=== PATIENT | male | born 1955 | race Caucasian/White ===

== ENCOUNTER 2018-06-18 11:32 | Emergency (ER) | payer OTHER, SELFPAY ==
[2018-06-18 11:33] VITALS: BP 140/89; PULSE 66; RESP 16; TEMP 36.3; O2SAT 95; BMI 34.6
--- NOTE | 2018-06-18 11:42 | CT_ITS ---
STUDY: CT BRAIN WITHOUT CONTRAST REASON FOR EXAM: Male, 63 years old. Confusion, blurred vision and slurred speech. RADIATION DOSAGE (If Supplied By Facility): CTDIvol = ( 44.99 ) mGy, DLP = ( 812.98 ) mGycm TECHNIQUE: Transaxial CT imaging of the brain was performed without administration of intravenous contrast material. Individualized dose optimization techniques were used for this CT. COMPARISON: None. FINDINGS: Normal soft tissue structures. Normal calvarium. Normal size ventricles and extra-axial spaces for the patient's age. Normal white matter tracts of the cerebral hemispheres. There is a low-density area in the inferior left basal ganglia which could represent prominent vascular space or old lacunar infarct. Normal brainstem. Normal cerebellum. There is no intracranial hemorrhage. There are no findings of an acute ischemic infarction. There are calcifications of the visualized vertebral and cavernous internal carotid arteries. Normal visualized paranasal sinuses. CT/Brain/Head without Contrast IMPRESSION: No acute intracranial process. If symptoms persist, MRI of the brain is recommended. Electronically Signed: Neeraj Delgado MD at 12:48 EDT Tel , Service support ,
--- NOTE | 2018-06-18 11:42 | RAD_ITS ---
STUDY: X-RAY CHEST REASON FOR EXAM: Male, 63 years old. Shortness of breath and dyspnea. TECHNIQUE: Single AP portable view of the chest. COMPARISON: Prior comparison studies are not available for review at this time. FINDINGS: The lungs are clear and expanded. There is no demonstrated pleural abnormality. Normal size heart. Normal mediastinum and jac. Normal visualized pulmonary arteries. There is atherosclerotic tortuosity of the aortic arch and descending thoracic aorta. The thoracic spine is obscured. Normal visualized ribs, clavicles, and shoulders. There is no demonstrated abnormality of the visualized soft tissue structures of the upper abdomen. RAD/Chest 1 View (Portable) IMPRESSION: No active pulmonary disease. Electronically Signed: Neeraj Delgado MD at 13:07 EDT Tel , Service support ,
--- NOTE | 2018-06-18 11:47 | EKG12_ITS ---
Test Reason : NEURO Blood Pressure : / mmHG Vent. Rate : 061 BPM Atrial Rate : 061 BPM P-R Int : 202 ms QRS Dur : 074 ms QT Int : 408 ms P-R-T Axes : -04 014 004 degrees QTc Int : 410 ms Normal sinus rhythm Normal ECG Confirmed by MELISSA KIRKLAND, BONILLA ([id number]), order editor FELIX FITCH ([id number] on 06/20/2018 1:32:21 PM Referred By: Leif Burleson Confirmed By:BONILLA TORRES MD
--- NOTE | 2018-06-18 11:53 | ED.DCSUM_ITS ---
- ER Visit Summary Date of Service: 06/18/18 Chief Complaint: [] Confusion at work yesterday History of Present Illness: The patient is a 63 M [] he reports he really has no past medical history he works at a local grocery store sometime midmorning he began having confusion about work duties and tasks that he normally executes on a daily basis without difficulty he had a mild headache, at one point he was concerned he may have had trouble with his gait his symptoms persisted all through the day yesterday evening when he got home he did not wish to come to the hospital he thought this might be related to work-related stress, he woke today feeling better but not perfectly sharp minded like he normally has any was brought in for evaluation his headache is resolved, He has no history of stroke seizure subarachnoid hemorrhage no head trauma no fever no cough no exposures no change in vision no current numbness weakness paresthesias or difficulty with speech or difficulty with gait, and again he reports no past history is on no medications Physical Examination: [] His vitals are within normal range his speech is easy to understand and clear normal his HEENT cranial nerve exam are negative his neck is supple his lungs are clear the heart tones reveal a loud click but sound regular no obvious murmur the upper lower extremities unremarkable neurologic exam shows normal motor sensory cerebellar and gait function NIH is 0 he has no mental cloudiness now Test Results: [] Emergency Department Course and Treatment: [] Labs CT Patient's labs are generally unremarkable his head CT showed nothing acute, he then underwent head CTA neck CTA the showed no obvious acute occlusive issues some calcium scattered throughout some vessels and the P-comm could not clearly be identified see all those reports, on reevaluation he insists he feels fine, he is walking around the emergency department he has no symptoms of any kind, he has no headache he has no mental cloudiness he sharp minded back to his normal state I discussed the concept of TIA or other occult processes of explained to him he requires additional imaging such as MRI cannot be accomplished today because attacks not available, I explained we could arrange for inpatient management for all the above and has TIAs and strokes could be lethal, he voiced understanding of all the above the was in the room with him but he insisted on going home he said he was feeling fine did not wish to be admitted he wanted to be worked up as an outpatient I spoke with Dr. Quin Tavares some of neurology explained all the above to him he also suggested trying the patient be admitted but I explained the above to him, the patient will be instructed to take one baby aspirin a day and follow-up with neurology for further management and imaging as clinically warranted, he does agree to return if any of the symptoms change or intensified anyway and again he is awake alert competent clearly understands the above and wants to be managed as an outpatient Treatment Plan: [] Disposition: [] Home stable, patient declined admission Impression: [] Transient memory loss possible TIA This note was generated with [employer] dictation software. It may contain incorrect words, spelling, and punctuation that were not noted in review of the chart prior to signing ED Disposition - Plan for ED Patient: Chief Complaint: Neuro S/Sx Referrals: NOT,DEFINED [NON-STAFF] -
[2018-06-18 12:00] LABS: Bedside Glucose 76 mg/dL (70-110)
[2018-06-18] MEDS: 0.9% Normal Saline 1,000 ML 150 ML IV (12:08)
[2018-06-18 12:13] LABS: Absolute Lymphocyte Count 2.39 X10^3/ul (0.83-4.51); Absolute Neutrophil Count 4.1 X10^3/uL (2.0-7.7); Basophil# 0.02 X10^3/uL; Basophil% 0.3 % (0-1); Eosinophil# 0.14 X10^3/uL; Eosinophils% 1.9 % (0-5); Hematocrit 44.7 % (40-54); Hemoglobin 15.2 g/dl (13.0-16.5); Lymphocyte # 2.39 X10^3/ul (4.0); Lymphocyte % 32.5 % (19-41); Mean Corpuscular Volume 88.3 fL (80-94); Monocyte# 0.68 X10^3/uL; Monocyte% 9.2 % (0-10); Neutrophil # 4.12 X10^3/uL (2.7-7.7); POSITIVE COUNT NO; POSITIVE DIFFERENTIAL NO; POSITIVE MORPHOLOGY NO; Platelet Count 266 K/mm3 (150-450); RBC Distribution Width CV 13.4 % (11.6-14.6); RBC Distribution Width SD 43.1 fl (35.1-43.9); Red Blood Count 5.06 M/mm3 (4.6-6.2); White Blood Count 7.4 K/mm3 (4.4-11.0)
[2018-06-18 12:28] LABS: Anion Gap 4 (5-15); BUN 16 mg/dL (7-18); BUN/Creat Ratio 18.5 RATIO (10-20); Calcium,Total 8.8 mg/dL (8.5-10.1); Chloride 107 mmol/L (98-107); Creatinine, Serum 0.86 mg/dL (0.70-1.30); EST Glomerular Filtration Rate 95 mL/min (>60); Est Glom Filt Rate - Afr Amer 115 mL/min (>60); Estimated Creatinine Clearance 91.96 ml/min; Glucose 83 mg/dL (74-106); Sodium Level 140 mmol/L (136-145)
[2018-06-18 12:43] LABS: Bacteria 0 SEEN /hpf (None Seen); Red Blood Cells-Urine 0 SEEN /hpf (0-5)
[2018-06-18 12:44] LABS: Color, Urine Yellow (Yellow); Glucose, Dipstick Normal (Normal); Ketone-Dipstick Negative (Negative); Leukocyte Esterase-Dipstick Negative /ul (Negative); Nitrite-Dipstick Negative (Negative); Occult Blood-Urine Negative /ul (Negative); Protein-Dipstick 15 mg/dl (Negative); Urine Bilirubin Dipstick Negative (Negative); Urine Clarity Clear (Clear); Urine Urobilinogen Normal (Normal)
[2018-06-18 12:51] LABS: Mucous, Urine RARE /hpf (<or=2+); Squamous Epithelial Cells - UA 0-5 SEEN /hpf (0-5); White Blood Cells 0-5 SEEN /hpf (0-5)
--- NOTE | 2018-06-18 13:02 | CT_ITS ---
STUDY: CTA NECK WITH CONTRAST REASON FOR EXAM: Male, 63 years old. Blurred vision and slurred speech. RADIATION DOSAGE (If Supplied By Facility): CTDIvol = ( 20.85 ) mGy, DLP = ( 831.75 ) mGycm TECHNIQUE: CT angiography with multi-detector data acquisition was performed from the aortic arch to the skull base following intravenous administration of 100mL ml of Isovue 370 contrast. MIP images were reconstructed from the axial data set. Post-processing of the angiographic images was performed, with multiplanar reformation and 3D reconstruction. Individualized dose optimization techniques were used for this CT. COMPARISON: None. FINDINGS: AORTIC ARCH: Normal visualized aortic arch. Normal origins of the brachiocephalic, left common carotid, and left subclavian arteries. RIGHT CAROTID ARTERIES: There is atherosclerotic tortuous elongation of the right common carotid artery. Normal right common carotid bulb. Normal origin of the right internal carotid (ICA) artery without a hemodynamically significant stenosis. Normal visualized cervical portion of the right internal carotid artery. Normal origin of the right external carotid artery (ECA). LEFT CAROTID ARTERIES: Normal left common carotid artery (CCA). There is mild atherosclerotic plaque formation with minimal narrowing of the left carotid bulb. Normal origin of the left internal carotid (ICA) artery without a hemodynamically significant stenosis. Normal visualized cervical portion of the left internal carotid artery. Normal origin of the left external carotid artery (ECA). VERTEBRAL ARTERIES: There are calcifications of the distal vertebral arteries bilaterally. Otherwise patent bilateral vertebral arteries. CT/CTA Neck W/WO Contrast IMPRESSION: Atherosclerotic calcifications of the distal bilateral vertebral arteries. Otherwise no flow-limiting stenosis is seen. Electronically Signed: Neeraj Delgado MD at 14:20 EDT Tel , Service support ,
--- NOTE | 2018-06-18 13:03 | CT_ITS ---
STUDY: CTA OF THE BRAIN REASON FOR EXAM: Male, 63 years old. Blurred vision and slurred speech. RADIATION DOSAGE (If Supplied By Facility): CTDIvol = ( 20.85 ) mGy, DLP = ( 831.75 ) mGycm TECHNIQUE: CT angiography was performed with a multi-detector CT scanner. Data acquisition was obtained from the skull base through the vertex following intravenous administration of ml of . MIP images were reconstructed from the axial data set. Post-processing of the angiographic images was performed, with multiplanar reformation and 3D reconstruction. Individualized dose optimization techniques were used for this CT. COMPARISON: None. FINDINGS: Normal bilateral petrous carotid arteries. There is calcified plaque formation of the right cavernous carotid artery, with a mild stenosis (less than 50%). There is calcified plaque formation of the left cavernous carotid artery, without a cross-sectional luminal stenosis. There is non-visualization of the right A1 segment of the anterior cerebral arteries consistent with either aplastic development or an occlusion. Normal left A1 segments of the anterior cerebral artery. Normal intact anterior communicating artery (ACOM). Normal bilateral A2 segments of the anterior cerebral arteries. Normal right M1 and M2 segments of the middle cerebral arteries, with a normal M1 bifurcation. Normal left M1 and M2 segments of the middle cerebral arteries, with a normal M1 bifurcation. There is non-visualization of the right posterior communicating artery (PCOM). There is a persistent origin of the left posterior cerebral artery with absence of the posterior communicating artery (PCOM). There are calcifications of the distal vertebral arteries bilaterally. The basilar artery appears unremarkable. The right posterior cerebral artery is unremarkable. There is no demonstrated definite aneurysm of the [place] of [place]. CT/CTA Head W/WO Contrast IMPRESSION: Atherosclerotic calcifications of the vertebral and cavernous internal carotid arteries bilaterally. Nonvisualization of the right A1 segment of the anterior cerebral artery which could be hypoplastic or occluded. The posterior communicating arteries bilaterally are not definitely identified. Otherwise no significant stenosis is seen. Electronically Signed: Neeraj Delgado MD at 14:33 EDT Tel , Service support ,
[2018-06-18 13:41] VITALS: BP 145/95; PULSE 67; RESP 12; O2SAT 97
[2018-06-18 14:41] VITALS: BP 142/96; PULSE 64; RESP 17; O2SAT 97
--- NOTE | 2018-06-18 15:38 | ED.DEP ---
ED Disposition - Plan for ED Patient: Chief Complaint: Neuro S/Sx Instructions: ED Transient Ischemic Attack Referrals: NOT,DEFINED [NON-STAFF] - Rory Fuentes MD [STAFF PHYSICIAN] - Additional Instructions: Please take one baby aspirin a day until followed up with neurology
[2018-06-18] MEDS: Aspirin 325 MG Tablet PO (15:43)
[2018-06-18 15:44] VITALS: BP 144/87; PULSE 64; RESP 16; O2SAT 97
== END 2018-06-18 15:45 | disposition home or self-care (01) ==
LOC: ED 12:10
PROVIDERS: Emergency Provider Emergency Medicine
DX: G45.4 Transient global amnesia (principal); G45.9 Transient cerebral ischemic attack, unspecified
CPT/HCPCS: 70450; 70496; 70498; 71045; 80048; 81001; 82962; 84484; 85025; 93005; 96360; 96361; 99284; J7030; J7040; Q9967

== ENCOUNTER 2021-01-31 15:47 | Outpatient (RCR) | payer MEDICARE, SELFPAY ==
[2021-01-31] MEDS: COVID-19 VACC, MRNA(PFIZER)/PF 30 MCG/0.3 ML SYRINGE IM (08:08)
[2021-02-21] MEDS: COVID-19 VACC, MRNA(PFIZER)/PF 30 MCG/0.3 ML SYRINGE IM (08:09)
== END 2021-01-31 23:59 ==
LOC: IMMUN 15:47
PROVIDERS: Visit Provider Family Medicine
DX: Z23 Encounter for immunization (principal)
CPT/HCPCS: 0001A; 0002A; 91300